=== PATIENT | male | born 1990 | race Two or more races ===

== ENCOUNTER 2025-04-19 02:21 | Inpatient (IN) | payer MEDICAID, OTHER ==
[~2025-04-19] VITALS: Ht 177.8 cm; Wt 99.0 kg
[2025-04-19] MEDS: IV LR 1000 ML 1,000 ML IV ONE ×2 (03:19→05:25)
[2025-04-19 04:05] LABS: PLATELET COUNT (AUTO) 334 K/uL (150-450); RED BLOOD CELL COUNT(AUTO) 4.32 MIL/uL (4.5-6.0); RED CELL DISTRIBUTION WIDTH 15.2 % (11.5-15.0); WHITE BLOOD COUNT (AUTO) 7.4 K/uL (4.3-11.0)
[2025-04-19 04:11] LABS: CALCIUM, SERUM 8.8 mg/dL (8.5-10.1); CREATININE 1.0 mg/dL (0.6-1.3); SODIUM SERUM 137 mmol/L (136-145); UREA NITROGEN, BLOOD 10 mg/dL (7-18)
[2025-04-19 04:19] LABS: ASPARTATE AMINOTRANSFERASE 236 U/L (15-37); TOTAL PROTEIN, SERUM 9.3 g/dL (6.4-8.2)
[2025-04-19] MEDS ORDERED: ACETAMINOPHEN 325 MG TABLET PO PRN (06:00)
[2025-04-19] MEDS ORDERED: ONDANSETRON HCL/PF 4 MG/2 ML VIAL IVP PRN (06:00)
[2025-04-19] MEDS ORDERED: IV NS 0.9% 1,000 ML IV PRN (06:00)
[2025-04-19] MEDS ORDERED: MAGNESIUM HYDROXIDE 30 ML UDC PO PRN (06:00)
[2025-04-19] MEDS: PANTOPRAZOLE 40 MG TABLET.DR PO SCH (07:30)
[2025-04-19] MEDS ORDERED: PANTOPRAZOLE 40 MG TABLET.DR PO ONE (08:43)
[2025-04-19] MEDS ORDERED: ASPIRIN 81 MG TAB.CHEW ONE (08:44)
[2025-04-19] MEDS: ASPIRIN 81 MG TAB.CHEW PO SCH (08:56)
[2025-04-19 10:00] VITALS: BP 181/117; TEMP 98.1; O2SAT 98
[2025-04-19] MEDS: CHLORDIAZEPOXIDE HCL 25 MG CAPSULE PO SCH ×2 (10:09→14:14)
[2025-04-19] MEDS: SPIRONOLACTONE 25 MG TABLET PO SCH (10:09)
[2025-04-19 11:00] VITALS: BP 157/112; TEMP 98.8; O2SAT 97
[2025-04-19] MEDS ORDERED: EMPA10TA PO (11:42)
[2025-04-19] MEDS ORDERED: SACU1TAB PO (11:42)
[2025-04-19] MEDS: METOPROLOL TARTRATE 50 MG TABLET PO SCH (11:42)
[2025-04-19] MEDS ORDERED: SPIR25TA6 PO (11:42)
[2025-04-19] MEDS ORDERED: CARV6.25 PO (11:42)
[2025-04-19] MEDS ORDERED: LORAZEPAM INJ 2 MG/ML VIAL IV PRN (12:00)
[2025-04-19 20:00] VITALS: BP 167/118; TEMP 98.4; O2SAT 98
[2025-04-20] VITALS: BP 166/116; TEMP 98.4; O2SAT 99
[2025-04-20 04:00] VITALS: BP 168/118; TEMP 98.2; O2SAT 99
[2025-04-20 07:19] LABS: PLATELET COUNT (AUTO) 298 K/uL (150-450); RED BLOOD CELL COUNT(AUTO) 4.26 MIL/uL (4.5-6.0); RED CELL DISTRIBUTION WIDTH 14.9 % (11.5-15.0); WHITE BLOOD COUNT (AUTO) 8.3 K/uL (4.3-11.0)
[2025-04-20 07:38] LABS: CALCIUM, SERUM 9.1 mg/dL (8.5-10.1); CREATININE 0.9 mg/dL (0.6-1.3); PHOSPHORUS 3.2 mg/dL (2.5-4.9); SODIUM SERUM 138.0 mmol/L (136-145); UREA NITROGEN, BLOOD 8.0 mg/dL (7-18)
[2025-04-20 07:42] LABS: ASPARTATE AMINOTRANSFERASE 101.0 U/L (15-37); LDL 144.0 mg/dL (0-99); TOTAL PROTEIN, SERUM 8.2 g/dL (6.4-8.2)
[2025-04-20 09:00] VITALS: BP 160/117; TEMP 98.1; O2SAT 99
[2025-04-20 12:00] VITALS: BP 150/118; TEMP 98.1; O2SAT 99
[2025-04-20 16:53] VITALS: BP 132/105; TEMP 97.7
[2025-04-20 20:00] VITALS: BP 118/90; TEMP 98.5; O2SAT 100
[2025-04-21] VITALS: BP 136/92; TEMP 98.7; O2SAT 100
[2025-04-21 04:00] VITALS: BP 133/95; TEMP 98.1; O2SAT 99
[2025-04-21 08:00] VITALS: BP 142/107; TEMP 98.2; O2SAT 99
[2025-04-21 12:00] VITALS: BP 129/85; TEMP 97.2; O2SAT 98
[2025-04-21 13:23] LABS: ASPARTATE AMINOTRANSFERASE 63.0 U/L (15-37); TOTAL PROTEIN, SERUM 8.5 g/dL (6.4-8.2)
== END 2025-04-21 15:27 | disposition home or self-care (01) | DRG 205 ==
LOC: ER 02:42 → TELE1 08:15
PROVIDERS: ADMIT Internal Medicine; ATTEND Internal Medicine
DX: I42.6 Alcoholic cardiomyopathy (principal); I50.41 Acute combined systolic (congestive) and diastolic (congestive) heart failure; I11.0 Hypertensive heart disease with heart failure; F10.139 Alcohol abuse with withdrawal, unspecified; Y90.8 Blood alcohol level of 240 mg/100 ml or more; R74.01 Elevation of levels of liver transaminase levels; Z82.49 Family history of ischemic heart disease and other diseases of the circulatory system
CPT/HCPCS: 36415; 71045-TC; 76700-TC; 80048-TC; 80061-TC; 80076-TC; 83735-TC; 83880; 84100-TC; 84484-TC; 85025-TC; 93307-TC; G0378; G0480; J7120